=== PATIENT | male | born 1940 | race Caucasian/White ===

== ENCOUNTER 2019-07-09 06:59 | Day surgery (SDC) | payer MEDICARE, OTHER ==
[2019-07-09] MEDS ORDERED: DIAZEPAM 5 MG TAB PO (07:30)
[2019-07-09] MEDS ORDERED: FAMOTIDINE 20 MG TAB PO (07:30)
[2019-07-09] MEDS ORDERED: DIPHENHYDRAMINE 50 MG CAP PO (07:30)
[2019-07-09] MEDS ORDERED: SOD CHLORIDE 0.45% 1,000 ML IV (07:30)
[2019-07-09 07:39] LABS: ADD MAN DIFF? NO
[2019-07-09 07:48] LABS: BASOPHILS % 0.3 % (0.0-2.0); EOSINOPHILS # 0.1 10^3/ul (0.0-0.5); EOSINOPHILS % 0.9 % (0.0-7.0); LYMPHOCYTES # 2.1 10^3/ul (0.8-2.9); LYMPHOCYTES % 23.3 % (15.0-51.0); MEAN CORPUSCULAR HEMOGLOBIN 31.3 pg (29.0-33.0); MEAN CORPUSCULAR HGB CONC 32.6 g/dl (32.0-37.0); MEAN PLATELET VOLUME 10.3 fl (7.4-10.4); MONOCYTE # 0.7 10^3/ul (0.3-0.9); MONOCYTES % 7.2 % (0.0-11.0); NEUTROPHIL # 6.2 10^3/ul (1.6-7.5); NEUTROPHILS % 68.1 % (39.0-77.0); PLATELET COUNT 245 10^3/UL (140-415); RED BLOOD COUNT 4.79 10^6/ul (4.70-6.10); RED CELL DISTRIBUTION WIDTH 12.2 % (11.5-14.5)
[2019-07-09 07:48] LABS: WHITE BLOOD COUNT 9.1 10^3/ul (4.8-10.8)
[2019-07-09 07:57] LABS: INR 0.96; PROTIME 12.9 Sec (11.9-14.9)
[2019-07-09 07:58] LABS: PARTIAL THROMBOPLASTIN TIME 27.6 Sec (23.0-35.0)
[2019-07-09 08:02] LABS: ANION GAP 6 (5-13); CALCIUM 8.4 mg/dl (8.4-10.2); CARBON DIOXIDE 26 mmol/L (21-31); CHLORIDE 108 mmol/L (97-110); CHOL/HDL RATIO 2.7 RATIO; CHOLESTEROL 133 mg/dl (100-200); CREATININE 1.24 mg/dl (0.61-1.24); GLUCOSE 95 mg/dl (70-220); HDL CHOLESTEROL 49 mg/dl (31-75); LDL CHOLESTEROL,CALCULATED 66 mg/dl; POTASSIUM 4.2 mmol/L (3.5-5.1); SODIUM 140 mmol/L (135-144); TRIGLYCERIDES 89 mg/dl (0-149)
[2019-07-09 08:06] LABS: BLOOD UREA NITROGEN 22 mg/dl (7-20)
[2019-07-09] MEDS ORDERED: LIDOCAINE 1% (MDV) 20 ML INJ (08:34)
[2019-07-09] MEDS ORDERED: HEPARIN 1000 UNITS/ML 10 ML INJ (08:34)
[2019-07-09] MEDS ORDERED: FENTAnyl 50 MCG/ML VIAL (08:34)
[2019-07-09] MEDS ORDERED: IODIXANOL LOCM 100 ML BTL (08:34)
[2019-07-09] MEDS ORDERED: VERAPAMIL 5 MG INJ (08:34)
[2019-07-09] MEDS ORDERED: MIDAZOLAM 1 MG/ML 2 ML INJ (08:34)
[2019-07-09] MEDS ORDERED: NITROGLYCERIN (IC) 100 MCG/ML INJ (08:35)
[2019-07-09] MEDS ORDERED: morphine 2 MG INJ IV (11:00)
[2019-07-09] MEDS ORDERED: ACETAMINOPHEN 325 MG TAB (11:00)
[2019-07-09] MEDS: ACETAMINOPHEN 325 MG TAB PO (11:05)
[2019-07-09] MEDS: SOD CHLORIDE 0.9% 1,000 ML IV (11:05)
== END 2019-07-09 16:08 | disposition home or self-care (01) ==
LOC: SDS 06:59
DX: I25.10 Atherosclerotic heart disease of native coronary artery without angina pectoris (principal); I10 Essential (primary) hypertension; E78.5 Hyperlipidemia, unspecified; E78.00 Pure hypercholesterolemia, unspecified; R94.39 Abnormal result of other cardiovascular function study
CPT/HCPCS: 71045; 80048; 80061; 85025; 85610; 85730; 93005; 93458